=== PATIENT | female | born 1945 | race Caucasian/White ===

== ENCOUNTER 2020-07-19 07:58 | Day surgery (SDC) | payer MEDICARE, OTHER ==
[~2020-07-19 07:58] MED LIST: Bupivacaine 0.5%/EPINEPHrine 1:200,000 50 ML MDV ONE; Meropenem 500 MG SDV ONE
[2020-07-19] MEDS ORDERED: Dextrose 5%-Lactated Ringers 1,000 ML IV SCH (08:30)
[2020-07-19] MEDS ORDERED: Naproxen 250 MG Tab PO ONE (08:30)
[2020-07-19] MEDS ORDERED: Acetaminophen 500 MG Tab PO ONE (08:30)
[2020-07-19] MEDS ORDERED: methylPREDNISolone Sodium Succinate 125 MG/2 ML SDV IVPUSH ONE (09:00)
[2020-07-19] MEDS ORDERED: Rocuronium 50 MG/5 ML Vial ONE (09:19)
[2020-07-19] MEDS ORDERED: Glycopyrrolate 0.2 MG/ML 5 ML MDV ONE (09:19)
[2020-07-19] MEDS ORDERED: Ondansetron 4 MG/2 ML SDV ONE (09:19)
[2020-07-19] MEDS ORDERED: Dexamethasone 4 MG/ML SDV ONE (09:19)
[2020-07-19] MEDS ORDERED: fentaNYL 250 MCG/5 ML SDV ONE (09:19)
[2020-07-19] MEDS ORDERED: Propofol 200 MG/20 ML SDV ONE (09:19)
[2020-07-19] MEDS ORDERED: Neostigmine Methylsulfate 1 MG/ML 5 ML Syringe ONE (09:19)
[2020-07-19] MEDS ORDERED: ceFAZolin 2 GM in Premix Bag 1 BAG IV ONE (09:30)
[2020-07-19] MEDS ORDERED: Bupivacaine 0.5% 50 ML MDV ONE (10:20)
[2020-07-19] MEDS ORDERED: Lidocaine 1% with EPINEPHrine 1:100,000 50 ML MDV ONE (10:20)
[2020-07-19] MEDS ORDERED: Ketamine 50 MG in Sodium Chloride 0.9% 49.5 ML IV SCH (10:45)
[2020-07-19] MEDS ORDERED: Ketamine 500 MG/5 ML MDV IV SCH (10:45)
[2020-07-19] MEDS ORDERED: Ropivacaine 36 ML, dexAMETHasone 8 MG, EPINEPHrine 0.4 MG, Sodium Chloride 0.9% 41.6 ML NERVRT SCH ×4 (10:45)
[2020-07-19] MEDS ORDERED: oxyCODONE 5 MG Tab PO PRN (13:09)
[2020-07-19 14:12] VITALS: BP 150/70; PULSE 101
--- NOTE | 2020-07-24 14:24 | OR ---
DATE OF PROCEDURE: 07/19/2020 SURGEON: Gregg Harper MD PREOPERATIVE DIAGNOSIS: Incarcerated incisional hernia. POSTOPERATIVE DIAGNOSIS: Incarcerated incisional hernia. OPERATIVE PROCEDURE: Open repair of incarcerated incisional inguinal with mesh ([id number]). ANESTHESIA: General. 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 Plan is to proceed with local exploration of the area and repair of the hernia with mesh. Potential risks of the procedure including bleeding, infection, injury to underlying viscera, problems with mesh becoming infected or hernia recurring were all gone over, and the patient wishes to proceed. DETAILS OF PROCEDURE: The patient was taken to the operating room and placed in supine position. After general endotracheal anesthesia was induced, a Dimas catheter was inserted, which was removed at the end of the procedure, and the abdomen prepped and draped. A midline incision from the umbilicus roughly 6 cm superiorly was made and carried down through the skin and subcutaneous tissue. The hernia sac was then identified just to the right of the midline. This was dissected down trocar site hernia with a fascial defect of around 1.5 cm. The hernia contents were incarcerated and were excised more or less flush with the fascia. The incarcerated components what appeared to be appendix epiploica of transverse colon coming from some of the colon are being seen underneath the hernia wound during the ultrasound exam preoperatively. At that point, the edges of the peritoneum along the hernia site was clear of any additional adhesions. An extra large mesh plug was then placed into the defect and affixed at 6 points around its circumference. The underlying fascia was closed with horizontal mattress sutures of 0 Vicryl stitch. The area was then irrigated with an antibiotic-containing saline solution. The transversely oriented primary fascial closure was accomplished with 0 Vicryl stitch, subcutaneous tissue with some 4-0 Vicryl stitch, the skin with 4-0 Vicryl subcuticular stitch, and surgical glue applied. Prior to closure, bilateral transverse abdominis plane blocks were placed and was anesthetized with 0.5% Marcaine as well. The patient was taken to the recovery room in satisfactory condition. There were no evident complications. Gregg Harper MD /[id number]
== END 2020-07-19 14:15 | disposition home or self-care (01) ==
LOC: JP.SDS 07:58
PROVIDERS: ATTEND Surgery
DX: K43.0 Incisional hernia with obstruction, without gangrene (principal); E03.9 Hypothyroidism, unspecified; E21.3 Hyperparathyroidism, unspecified; Z86.73 Personal history of transient ischemic attack (TIA), and cerebral infarction without residual deficits; Z98.890 Other specified postprocedural states; I10 Essential (primary) hypertension; Z79.899 Other long term (current) drug therapy; Z98.84 Bariatric surgery status; Z88.1 Allergy status to other antibiotic agents; Z88.8 Allergy status to other drugs, medicaments and biological substances; Z91.048 Other nonmedicinal substance allergy status
CPT/HCPCS: 49561; 49568; A9270; C1781; J0171; J0690; J1100; J2020; J2185; J2405; J2704; J2710; J2795; J2930; J3010; J3490; J7050; J7121; 88302

== ENCOUNTER 2024-06-10 10:14 | Emergency (ER) | payer MEDICARE, OTHER ==
[2024-06-10] MEDS: fentaNYL 100 MCG/2 ML SDV IVPUSH ONE ×2 (11:25→13:47)
[2024-06-10] MEDS: Sodium Chloride 0.9% 1,000 ML IV SCH (11:25)
[2024-06-10] MEDS: Ondansetron 4 MG/2 ML SDV IVPUSH ONE (11:26)
[2024-06-10 11:31] LABS: BASOPHILS ABSOLUTE AUTO 0.08 K/uL (0.00-0.10); BASOPHILS PERCENT AUTO 0.6 % (0.1-1.3); HEMATOCRIT 36.2 % (34.3-46.0); HEMOGLOBIN 11.3 g/dL (11.2-15.5); IMMATURE GRAN ABSOLUTE AUTO 0.08 K/uL (0.00-0.23); IMMATURE GRAN PERCENT AUTO 0.6 % (0.0-0.7); LYMPHOCYTES ABSOLUTE AUTO 2.47 K/uL (0.8-3.3); LYMPHOCYTES PERCENT AUTO 19.7 % (11.4-47.7); MEAN CORPUSCULAR HEMOGLOBIN 24.9 pg (31.6-35.5); MEAN CORPUSCULAR HGB CONC 31.2 g/dL (31.6-35.5); MEAN CORPUSCULAR VOLUME 79.9 fL (81.4-99.0); NEUTROPHILS PERCENT AUTO 71.1 % (40.0-78.1); PLATELET COUNT,PLT 466 K/uL (130-375); RED BLOOD CELL COUNT 4.53 M/uL (3.77-5.24); WHITE BLOOD CELL COUNT,WBC 12.5 K/uL (3.2-11.0)
[2024-06-10] MEDS: Sodium Chloride 0.9% 10 ML Syringe FLUSH PRN (11:32)
[2024-06-10 12:27] LABS: ALANINE AMINOTRANSFERASE,ALT 19 U/L (12-78); ALBUMIN 3.3 g/dL (3.4-5.0); ALKALINE PHOSPHATASE 52 U/L (46-116); ASPARTATE AMNIOTRANSFERASE,AST 16 U/L (15-37); BILIRUBIN TOTAL 0.3 mg/dL (0.2-1.0); BLOOD UREA NITROGEN,BUN 33 mg/dL (7-18); CALCIUM 8.8 mg/dL (8.5-10.1); CARBON DIOXIDE,CO2 28 mmol/L (21-32); CHLORIDE,CL 102 mmol/L (100-108); CREATININE 1.3 mg/dL (0.6-1.0); EST CRCL DRUG DOSING (CG) 27.78 mL/min; ESTIMATED GFR 43 mL/min (>60); GLUCOSE RANDOM 95 mg/dL (74-106); POTASSIUM,K 4.9 mmol/L (3.6-5.2); PROTEIN TOTAL,TP 6.5 g/dL (6.4-8.2); SODIUM,NA 139 mmol/L (140-148); TROPONIN I HIGH SENSITIVITY 9.2 pg/mL (<=60.3)
[2024-06-10 12:39] LABS: ANION GAP 13.9 mmol/L (5.0-14.0)
[2024-06-10 13:20] LABS: APPEARANCE,URINE CLEAR (CLEAR); BILIRUBIN,URINE SMALL (NEGATIVE); COLOR,URINE YELLOW (YELLOW); GLUCOSE,URINE NEGATIVE (NEGATIVE); KETONES,URINE 15 mg/dL (NEGATIVE); LEUKOCYTE ESTERASE,URINE NEGATIVE (NEGATIVE); NITRITE,URINE NEGATIVE (NEGATIVE); OCCULT BLOOD,URINE NEGATIVE (NEGATIVE); PH,URINE 5.5 (5.0-8.0); PROTEIN,URINE NEGATIVE (NEGATIVE); UROBILINOGEN,URINE 0.2 EU/dL (0.2-1.0)
[2024-06-10 13:22] LABS: AMORPHOUS SEDIMENT,URINE NOT SEEN; BACTERIA,URINE NOT SEEN; EPITHELIAL CELLS,URINE FEW; MUCUS,URINE FEW; RBC,URINE 0-5 (0-5); WBC,URINE 0-5 (0-5)
[2024-06-10] MEDS: droPERidol 5 MG/2 ML SDV IVPUSH ONE (13:45)
[2024-06-10] MEDS: Iopamidol 612 MG/ML 100 ML Bottle IV SCH (15:34)
[2024-06-10] MEDS: Sodium Chloride 0.9% 10 ML Syringe FLUSH ONE (15:34)
[2024-06-10] MEDS: Sodium Chloride 0.9% 80 ML IV SCH (15:35)
[2024-06-10] MEDS: LORazepam 2 MG/ML SDV IVPUSH ONE (15:48)
[2024-06-10] MEDS: Lactated Ringers 1,000 ML IV ONE (15:48)
[2024-06-10] MEDS: Pramipexole 0.5 MG Tab PO STA (16:20)
[2024-06-10] MEDS: HYDROmorphone 1 MG/ML Syringe IVPUSH ONE ×2 (16:27→19:29)
[2024-06-10] MEDS: HYDROmorphone 1 MG/ML Syringe IVPUSH PRN (22:32)
[2024-06-10] MEDS: Ondansetron 4 MG/2 ML SDV IVPUSH PRN (22:40)
[2024-06-11] MEDS ORDERED: Pantoprazole 40 MG in Sodium Chloride 0.9% 100 ML IV ONE (07:07)
[2024-06-11] MEDS ORDERED: DEXTROSE 5% IV ONE (07:07)
[2024-06-11] MEDS ORDERED: WATER IV ONE (07:07)
[2024-06-11] MEDS ORDERED: METHYLPREDNISOLONE SOD SUCC IV ONE (07:07)
[2024-06-11 07:18] LABS: BASOPHILS ABSOLUTE AUTO 0.04 K/uL (0.00-0.10); BASOPHILS PERCENT AUTO 0.3 % (0.1-1.3); HEMATOCRIT 33.5 % (34.3-46.0); HEMOGLOBIN 10.4 g/dL (11.2-15.5); IMMATURE GRAN ABSOLUTE AUTO 0.04 K/uL (0.00-0.23); IMMATURE GRAN PERCENT AUTO 0.3 % (0.0-0.7); LYMPHOCYTES ABSOLUTE AUTO 1.52 K/uL (0.8-3.3); LYMPHOCYTES PERCENT AUTO 13.1 % (11.4-47.7); MEAN CORPUSCULAR HEMOGLOBIN 25.2 pg (31.6-35.5); MEAN CORPUSCULAR VOLUME 81.3 fL (81.4-99.0); MONOCYTES ABSOLUTE AUTO 1.25 K/uL (0.20-0.90); MONOCYTES PERCENT AUTO 10.8 % (3.3-12.6); NEUTROPHILS ABSOLUTE AUTO 8.71 K/uL (1.0-7.6); NEUTROPHILS PERCENT AUTO 75.5 % (40.0-78.1); PLATELET COUNT,PLT 414 K/uL (130-375); RED BLOOD CELL COUNT 4.12 M/uL (3.77-5.24); WHITE BLOOD CELL COUNT,WBC 11.6 K/uL (3.2-11.0)
[2024-06-11 07:33] LABS: CALCIUM 8.1 mg/dL (8.5-10.1); EST CRCL DRUG DOSING (CG) 36.11 mL/min; POTASSIUM,K 4.5 mmol/L (3.6-5.2)
[2024-06-11 07:36] LABS: ANION GAP 18.5 mmol/L (5.0-14.0)
[2024-06-11] MEDS: methylPREDNISolone Sodium Succinate 40 MG/1 ML SDV IV ONE (08:48)
[2024-06-11] MEDS: Pantoprazole 40 MG Vial IV ONE (08:49)
[2024-06-11] MEDS: Venlafaxine 37.5 MG Cap.ER PO SCH (08:51)
[2024-06-11] MEDS: Sodium Chloride 0.9% 1,000 ML IV SCH (11:04)
[2024-06-11 11:39] VITALS: BP 143/53; PULSE 91
[2024-06-11] MEDS: droPERidol 5 MG/2 ML SDV IVPUSH ONE (13:31)
[2024-06-11] MEDS ORDERED: PRAMIPEXOLE DI HCL 0.25 MG PO SCH (17:00)
[2024-06-11] MEDS ORDERED: Pramipexole 0.5 MG Tab PO SCH (17:00)
[2024-06-11] MEDS ORDERED: Gabapentin 100 MG Cap PO SCH (21:00)
[2024-06-11] MEDS ORDERED: Non-Formulary Medication 1 Each (Trazodone [Trazodone] 100 MG Tablet) PO SCH (21:00)
[2024-06-11] MEDS ORDERED: traZODone 50 MG Tab PO SCH (21:00)
[2024-06-11] MEDS ORDERED: Gabapentin 300 MG Cap PO SCH (21:00)
== END 2024-06-11 14:11 ==
LOC: JP.ED 10:14
DX: K56.609 Unspecified intestinal obstruction, unspecified as to partial versus complete obstruction (principal); Z98.84 Bariatric surgery status; K21.9 Gastro-esophageal reflux disease without esophagitis; Z86.73 Personal history of transient ischemic attack (TIA), and cerebral infarction without residual deficits; Z79.899 Other long term (current) drug therapy; Z88.1 Allergy status to other antibiotic agents; Z88.8 Allergy status to other drugs, medicaments and biological substances; Z91.048 Other nonmedicinal substance allergy status
CPT/HCPCS: 36415; 74177; 80048; 80053; 81001; 83605; 83690; 84484; 85025; 96361; 96374; 96375; 96376; 99285; A9270; J1170; J1790; J2060; J2405; J2470; J2919; J3010; J3490; J7030; J7120; Q9967

== ENCOUNTER 2025-04-22 07:41 | Day surgery (SDC) | payer MEDICARE, OTHER ==
[2025-04-22] MEDS: Lactated Ringers 1,000 ML IV SCH (08:42)
[2025-04-22] MEDS ORDERED: Propofol 200 MG/20 ML SDV ONE (08:55)
[2025-04-22] MEDS ORDERED: fentaNYL 50 MCG/ML SDV ONE (08:55)
[2025-04-22 09:46] VITALS: BP 141/69; PULSE 83
== END 2025-04-22 11:30 | disposition home or self-care (01) ==
LOC: JP.SDS 07:41
PROVIDERS: ATTEND Surgery
DX: R13.10 Dysphagia, unspecified (principal); E78.5 Hyperlipidemia, unspecified
CPT/HCPCS: 00731; 43235; J2704; J3010; J7120